=== PATIENT | female | born 1990 | race Caucasian/White ===

== ENCOUNTER 2023-11-02 14:27 | Emergency (ER) | payer SELFPAY ==
[2023-11-02 14:28] VITALS: BP 130/85
[2023-11-02 14:56] LABS: % Basophils 0.7 % (0-2); % Eosinophils 0.1 % (0-6); % Immature Granulocytes 0.3 % (0-0.5); % Lymphocytes 26.6 % (20.5-51.1); % Monocytes 5.9 % (1.7-9.3); % Neutrophils 66.4 % (42.2-75.2); Absolute Basophils 0.1 10^3/uL (0-0.2); Absolute Lymphocytes 1.9 10^3/uL (1.2-3.4); Absolute Monocytes 0.4 10^3/uL (0.1-0.6); Absolute Neutrophils 4.7 10^3/uL (1.4-6.5); Hematocrit 38.5 % (37.0-47.0); Hemoglobin 13.5 g/dL (12.0-16.0); Mean Corp Hgb Conc. 35.1 g/dL (33.0-37.0); Mean Corpuscular Hgb 29.7 pg (27.0-31.0); Mean Corpuscular Volume 84.6 fL (81.0-99.0); Nucleated Red Blood Cells % 0 %; Platelet Count 310 10^3/uL (130-400); Red Blood Cell Count 4.55 10^6/uL (4.20-5.40); Red Cell Dist. Width 13.3 % (11.5-14.5); White Blood Cell Count 7.1 10^3/uL (4.8-10.8)
[2023-11-02 15:11] LABS: HCG, Serum Qualitative Screen Negative
[2023-11-02 15:20] LABS: ALT (SGPT) 23 U/L (0-35); AST (SGOT) 29 U/L (14-36); Albumin 4.9 g/dl (3.5-5.0); Alkaline Phosphatase 61 U/L (38-126); Blood Urea Nitrogen 12 mg/dl (7-17); Calcium 10.2 mg/dl (8.4-10.2); Carbon Dioxide 17 mmol/L (22-30); Chloride 105 mmol/L (98-107); Glucose 99 mg/dl (70-99); Potassium 3.4 mmol/L (3.5-5.1); Sodium 136 mmol/L (135-145); Total Bilirubin 1.3 mg/dl (0.2-1.3); Total Protein 7.5 g/dl (6.3-8.2); eGFR > 60.00
[2023-11-02 15:46] LABS: TSH Reflex To Free T4 4.12 uIU/ml (0.47-4.68)
[2023-11-02 17:48] VITALS: BP 122/83
--- NOTE | 2023-11-02 17:59 | ED.GENMED ---
History of Present Illness
General
Chief Complaint: Numbness
Source: patient
Exam Limitations: none
Time Seen by Provider: 11/02/23 17:44
Travel History
Have you had any contact with someone who has COVID-19?: No
Do you have any symptoms of coronavirus? Fever > 100 degrees, chills, cough, shortness of breath, sore throat, loss of taste or smell, muscle aches, or headache?: No
History of Present Illness
History of Present Illness:
See MDM
Past History
Past History
ED Past Medical History: Other (ADHD)
ED Past Surgical History: None
Social History
Tobacco: Non-smoker
Alcohol: None
Phy Exam
Physical Exam
Physical Exam:
See MDM
Course
Orders/Labs/Results
Orders:
Orders
11/02/23 14:30
Electrocardiogram (*1) Urgent
Reason for Study: Tachycardia
EKG- Treatment ONCE
Test Result ONCE
11/02/23 14:41
Complete Blood Count/With Diff Urgent
Comprehensive Metabolic Panel Urgent
HCG, Serum Qualitative Screen Urgent
TSH Reflex To Free T4 Urgent
Abnormal Lab Results
11/02/23
14:41
Potassium 3.4 L mmol/L
(3.5-5.1)
Carbon Dioxide 17 L mmol/L
(22-30)
11/02/23 14:41
11/02/23 14:41
Vital Signs
Initial and Last Documented VS:
Initial Vital Signs
Temp Pulse Resp BP Pulse Ox
98.5 F 125 20 130/85 100
11/02/23 14:28 11/02/23 14:28 11/02/23 14:28 11/02/23 14:28 11/02/23 14:28
Last Documented Vital Signs
Temp Pulse Resp BP Pulse Ox
98.5 F 102 16 122/83 99
11/02/23 14:28 11/02/23 17:48 11/02/23 17:48 11/02/23 17:48 11/02/23 17:48
MDM/Problems Addressed
Differential Diagnosis Includes:
HPI and MDM Narrative:
32-year-old female presenting with resolving [id number] in both arms and both legs. Patient states she was in her car looking on her phone and she got a sudden sensation in both forearms and her wrist started to spasm. Patient states this
happened 1 year ago in [facility] and she was diagnosed with anxiety
On exam, symptoms are improving.
We discussed minor lab issues such as potassium of 3.4 and bicarb 17
Physical exam
General: Well appearing and non-toxic. Sitting in bed comfortably
HEENT: protecting airway
Neck: appears supple
CV: No evidence of cyanosis
Resp: No accessory muscle use
Abd: Non-distended
Extremities: No deformities
Neuro: alert. No focal deficits. Sensation grossly intact to hands and feet
Psych: Normal affect
Skin: Intact
Problems Addressed including Acute and Chronic Conditions affecting care:
1. Carpopedal spasm
Acuity: acute
Prognosis: stable
Details: Symptoms self resolved. Patient not convinced this is anxiety.
Updates
With a long discussion possible etiology. Patient feels better knowing that symptoms self resolved. We discussed follow-up with neurology discussed MRI brain keep occuring
Differential Diagnosis (but not limited to): Anxiety, hyperventilation, carpopedal spasm
Testing considered: CT head but symptoms resolved.
Drug therapy (if applicable): OTC meds, please see d/c instruction regarding Rx drugs
Amount and/or Complexity of Data Reviewed
Clinical info obtained from: Patient
External data reviewed: N/A
Labs I independently reviewed (but not limited to): Potassium and bicarb
Radiology: N/A
Pulse Ox: not hypoxic
EKG independently reviewed: Sinus rhythm, normal axis, no STEMI
[employer] Operator: N/A
Critical Care: N/A
Risk of Complication:
Social Determinants of health: Good social support
Discussed with other providers: N/A
Escalation of Care includes Admit/Obs: After being observed in the Emergency Department, pt stable for discharge.
Occasional wrong word or 'sound a like' substitutions may have occurred due to the inherent limitations of voice recognition software. Read the chart carefully and recognize, using context, where substitutions have occurred.
*Critical Care Note
Total Time (30-74mins, 75-104mins- exclusive of procedures): Not Applicable
ED Attending Note
-
Portions of this chart may have been created with voice recognition software.� Occasional wrong word or��sound alike� substitutions may have occurred due to the inherent limitations of voice recognition software.
Discharge Plan
Departure
Patient Disposition: Home (Routine Discharge)
Date of Disposition: 11/02/23
Time of Disposition: 17:59
Patient with high blood pressure during this ER visit?: No
Discharge Problem:
Carpopedal spasm
Referrals:
Kaleb Alas MD [Active] -
Loretta Loaiza NP [Family Provider] -
Activity Restrictions/Additional Instructions:
Please follow-up with the neurologist to consider outpatient MRI if symptoms persist. Please return for worsening symptoms.
Interventions
Interventions:
ED- Fall Risk Assessment Last Done: 11/02/23 17:48
*ED COVID-19 Vaccine History Last Done: 11/02/23 14:28
ED- Neurological Assessment Last Done: 11/02/23 17:48
Discharge Date and Time
Print Language: FRISIAN
== END 2023-11-02 18:23 | disposition home or self-care (01) ==
LOC: EMR 14:27
PROVIDERS: Emergency Medicine; EMERGENCY PHYSICIAN Student in an Organized Health Care Education/Training Program; FAMILY PHYSICIAN Nurse Practitioner Family
DX: R29.0 Tetany (principal); M62.838 Other muscle spasm; F90.9 Attention-deficit hyperactivity disorder, unspecified type; F41.9 Anxiety disorder, unspecified
CPT/HCPCS: 99283; 80053; 84443; 84703; 85025; 93005